=== PATIENT | female | born 1995 | race African-American/Black ===

== ENCOUNTER 2017-07-17 20:36 | Emergency (ER) | payer OTHER ==
[~2017-07-17] VITALS: Ht 180.3 cm; Wt 65.8 kg
[2017-07-17] MEDS ORDERED: CEFD300C PO (21:17)
[2017-07-17] MEDS ORDERED: OFLO10DR21 OT (21:17)
--- NOTE | 2017-07-17 21:19 | PHYS DOC ---
General Chief Complaint: EARACHE/EAR PAIN Stated Complaint: EAR PAIN BOTH EARS Time Seen by MD: 20:36 Source: patient Exam Limitations: no limitations Problems: History of Present Illness Initial Comments Patient is a 22-year-old female who comes to the ED complaining of ear pain. Patient states that she's had constant bilateral ear pain for the past week which has not gotten any better. She states that the right ear is worse but they both hurt, she has pain with moving the external ear and today had some drainage from her right ear. She has tender lymphadenopathy bilaterally denies fever chills sweats or body aches. She denies any hearing loss or change no difficulty with balance and no trauma. Timing/Duration: last week Severity: severe Location: ear (R), ear (L) Prearrival Treatment: over the counter meds Modifying Factors: improves with other Associated Symptoms: other Allergies: Coded Allergies: Penicillins (Unverified Allergy, Intermediate, 04/02/15) Past Medical History Medical History: no pertinent history Surgical History: noncontributory LMP (Females 10-50): Depo-Provera Social History Smoker: non-smoker Alcohol: none Drugs: none Constitutional: denies chills, denies diaphoresis, denies fever, denies malaise Eyes: denies blindness, denies blurred vision, denies drainage Ears: see HPI Nose: denies clots, denies congestion, denies epistaxis Throat: denies pain, denies swelling, denies discharge, denies neck stiffness Respiratory: denies cough, denies shortness of breath Cardiovascular: denies chest pain, denies palpitations Gastrointestinal: denies nausea, denies vomiting Physical Exam General Appearance: WD/WN, no apparent distress Eyes: bilateral eye normal inspection, bilateral eye PERRL, bilateral eye EOMI Ears: right ear foreign body (cerumen), left ear TM normal, bilateral ear other (canal erythema and tenderness bilaterally, most of the right TM is obscured by cerumen however small portion is visible and appears to be erythematous) Mouth/Throat: normal mouth inspection, pharynx normal Neck: other (tender reactiveLymphadenopathy bilaterally) Cardiovascular/Respiratory: normal breath sounds, no respiratory distress 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 I discussed [id number] and prescription medications the patient's questions were answered to her satisfaction and she expressed agreement and understanding with treatment plan. Departure Time of Disposition: 21:18 Disposition: 01 HOME, SELF-CARE Diagnosis: R otitis media, bilateral otitis externa Condition: GOOD Patient Instructions: Otitis Externa, [id number], Otitis Media, Adult, Easy- to-Read Additional Instructions: Please review the patient education materials given by ED staff. Keep ears dry except for medications until you follow up with your doctor. [id number] Tylenol and ibuprofen as needed for discomfort. Prescription: Cefdinir, Floxin otic Follow-up with your doctor in 10-14 days for recheck. Return to ED with new or changing symptoms. PREMA HANSON DO Jul 17, 2017 21:19
[2017-07-17 21:28] VITALS: BP 149/107
== END 2017-07-17 21:35 | disposition home or self-care (01) ==
LOC: ER 20:36
DX: H66.91 Otitis media, unspecified, right ear (principal); H60.93 Unspecified otitis externa, bilateral; Z88.0 Allergy status to penicillin
CPT/HCPCS: 99283

== ENCOUNTER 2020-10-13 18:21 | Emergency (ER) | payer OTHER ==
[~2020-10-13] VITALS: Ht 180.3 cm; Wt 58.1 kg
[~2020-10-13 18:21] MED LIST: CEFD300C PO; OFLO10DR21 OT
[2020-10-13] MEDS ORDERED: MORPHINE SULFATE 4 MG/ML DISP.SYRIN. IM ONE (18:45)
[2020-10-13] MEDS ORDERED: LIDOCAINE/EPI/TETRACAINE TOPICAL GEL 3 ML. TP ONE (18:45)
[2020-10-13] MEDS ORDERED: levoFLOXacin 500 MG TABLET PO ONE (18:45)
[2020-10-13] MEDS ORDERED: DIPH,PERTUSS(ACELL),TET VAC/PF 0.5 ML SYRINGE. VAX IM ONE (19:00)
--- NOTE | 2020-10-13 19:21 | RAD ---
Study: XR FINGER(S)_RIGHT 2+VIEWS Indication: Thumb trauma. Comparison: None. Findings/ Impression: Traumatic soft tissue/partial nail amputation at the tip of the thumb. No associated osseous abnormal ity at the thumb or elsewhere. Maintained joint spaces. No retained radiopaque foreign body. Electronically signed by: MARK LÓPEZ MD (10/13/2020 7:19 PM) [facility]
--- NOTE | 2020-10-13 20:22 | PHYS DOC ---
Past History Past Medical History: No Pertinent History Past Surgical History: Other Smoking: Non-smoker Alcohol Use: None Drug Use: None Adult General Chief Complaint Chief Complaint: FINGER INJURY HPI HPI Patient is a 25-year-old female who presents with right thumb injury. States she was peeling potatoes at home and slipped and cut off the tip of her right thumb. States she is not up-to-date on her tetanus vaccinations. States she is not on blood thinners. Denies any other injuries. Review of Systems Review of Systems Review of systems otherwise unremarkable except noted in HPI Current Medications Current Medications Current Medications Medications (Trade) Dose Ordered Sig/Oly Start Time Stop Time Status Last Admin Dose Admin Diphtheria/ Pertussis/Tetanus Vacc (ADACEL TDap SYRINGE) 0.5 ml ONCE ONCE 10/13/20 19:00 10/13/20 19:01 DC 10/13/20 19:23 0.5 ML Levofloxacin (Levaquin) 500 mg 1X ONCE 10/13/20 18:45 10/13/20 18:48 DC 10/13/20 19:21 500 MG Lidocaine/ Epinephrine (Let (Vnwc-Ygdedez-Klfia) Gel) 3 ml 1X ONCE 10/13/20 18:45 10/13/20 18:48 DC 10/13/20 19:21 3 ML Morphine Sulfate (Morphine 4mg Syringe) 4 mg 1X ONCE 10/13/20 18:45 10/13/20 18:48 DC 10/13/20 19:21 4 MG Allergies Allergies Allergies Coded Allergies Type Severity Reaction Last Updated Verified Penicillins Allergy Intermediate 04/02/15 No Physical Exam Physical Exam Constitutional: Well developed, well nourished, no acute distress, non-toxic appearance. [] HENT: Normocephalic, atraumatic, bilateral external ears normal, oropharynx moist, no oral exudates, nose normal. [] Skin: Warm, dry, no erythema, no rash. [] Extremities: Patient has a through and through laceration of the very distal tip of the right, lateral side. Neurovascular exam intact. No bone identified. Bleeding controlled. Neurologic: Alert and oriented X 3, normal motor function, normal sensory function, no focal deficits noted. [] Psychologic: Affect normal, judgement normal, mood normal. [] Current Patient Data Vital Signs Vital Signs Date Time Temp Pulse Resp B/P (MAP) Pulse Ox O2 Delivery O2 Flow Rate FiO2 10/13/20 19:21 16 98 Room Air EKG EKG [] Radiology/Procedures Radiology/Procedures [] Heart Score C/O Chest Pain: No Risk Factors: Risk Factors: DM, Current or recent (<one month) smoker, HTN, HLP, family history of CAD, obesity. Risk Scores: Risk Factors: DM, Current or recent (<one month) smoker, HTN, HLP, family history of CAD, obesity. Course & Med Decision Making Course & Med Decision Making Patient is a 25-year-old female who presents with laceration to the right thumb Vital signs not concerning. Physical exam noted above. Direct pressure L ET placed for anesthesia and hemostasis. Imaging noted above with no osseous abnormalities. Given morphine for pain. Updated on tetanus. Started on Augmentin in the ED. Wound cleaned, and bandaged. Patient given wound care instructions. Gave contact information for primary care in the area as well as orthopedic surgery. Advised to follow-up with both first thing Friday. Given pain recommendations for home. Patient grateful, verbalized understanding and agreed with plan of discharge. [] Dragon Disclaimer Dragon Disclaimer This electronic medical record was generated, in whole or in part, using a voice recognition dictation system. Departure Departure: Impression: Primary Impression: Thumb laceration Disposition: 01 DC HOME SELF CARE/HOMELESS Condition: GOOD Referrals: MAGRARITA LAYTON (PCP) GOLD FRY MD Patient Instructions: Laceration Care, Adult, Wound Care, [id number]-bj-[id number] Additional Instructions: Please read your attached information. You can use Tylenol, and ibuprofen as needed for pain control. You can also use ice. Please keep the area bandaged for the next 24 hours. You can use your prescription pain medicine as needed for pain control. You got an update on your tetanus vaccination here in the ED. Please take all of your antibiotics as prescribed. Please call your primary care physician and or orthopedic surgery first thing Friday. You are given the number for both. Please call your primary care physician first to d iscuss this with them if you cannot you can call the orthopedic surgery at the number below. [facility] orthopedic surgery is [phone]. Scripts Levofloxacin (LEVOFLOXACIN) 500 Mg Tablet 1 TAB PO DAILY for laceration, #7 TAB Prov: JANES CONTRERAS MD 10/13/20 Hydrocodone Bit/Acetaminophen (HYDROCODONE-APAP 5-325 ) 1 Each Tablet 1 TAB PO TID for finger injury for 3 Days, #9 TAB 0 Refills Prov: JANES CONTRERAS MD 10/13/20 JANES CONTRERAS MD Oct 13, 2020 20:22
[2020-10-13] MEDS ORDERED: HYDR-2155 PO (20:41)
[2020-10-13] MEDS ORDERED: LEVO500T8 PO (20:42)
[2020-10-13 20:51] VITALS: BP 149/107
== END 2020-10-13 20:46 | disposition home or self-care (01) ==
LOC: ER 18:21
DX: S61.011A Laceration without foreign body of right thumb without damage to nail, initial encounter (principal); Z88.0 Allergy status to penicillin; W26.0XXA Contact with knife, initial encounter; Y93.89 Activity, other specified; Y92.89 Other specified places as the place of occurrence of the external cause; Y99.8 Other external cause status
CPT/HCPCS: 73140; 90471; 90715; 96372; 99284; J2270